=== PATIENT | female | born 1995 | race Caucasian/White ===

== ENCOUNTER → 2017-05-12 | Outpatient (CLI) | payer BC ==
--- NOTE | 2017-05-12 12:15 | US ---
EXAMINATION TYPE: US abdomen complete DATE OF EXAM: 05/12/2017 COMPARISON: NONE CLINICAL HISTORY: 21 year-old female R19.00 ABD AND PELVIC SWELLING/MASS. TECHNIQUE: Multiple sonographic images of the abdomen are obtained. FINDINGS: Liver Length: 13.5 cm Gallbladder Wall: 0.3 cm CBD: 0.4 cm Spleen: 13.7 cm Right Kidney: 14.7 X 4.2 X 3.7 cm Left Kidney: 13.6 X 4.5 X 6.3 cm SR SOLUTIONS CONSULTANT NOTES: Exam limited by bowel gas and body habitus. Pancreas: not visualized due to midline bowel gas Liver: Appears echogenic and attenuating. Gallbladder: small mobile, layering sludge/stones seen. No abnormal distention, wall thickening, or pericholecystic fluid. Evidence for sonographic Baron's sign: No CBD: wnl Spleen: wnl Right Kidney: limited vis of lower pole due to bowel gas. No hydronephrosis. Left Kidney: limited vis of lower pole due to bowel gas. No hydronephrosis. Upper IVC: wnl Abd Aorta: wnl IMPRESSION: 1. Suspect fatty infiltration of the liver. Correlate with LFTs, elevated profile, and patient risk f actors. 2. Some gravel or layering sludge in the gallbladder. No evidence for acute cholecystitis.
--- NOTE | 2017-05-12 12:20 | US ---
EXAMINATION TYPE: US pelvic complete DATE OF EXAM: 05/12/2017 COMPARISON: NONE CLINICAL HISTORY: 21 year-old female R19.00 ABD AND PELVIC SWELLING/MASS. TECHNIQUE: Transabdominal (TA) Date of LMP: 04/21/2017 FINDINGS: Uterus: Anteverted measuring 7.2 x 4.2 x 4.5 cm Endometrial Stripe: 0.8 cm, within normal limits. Right Ovary: 3.2 x 2.6 x 2.2 cm Left Ovary: 3.0 x 3.1 x 2.4 cm Ovaries are normal size. POACHER OPERATOR NOTES: The exam somewhat limited by bowel gas and body habitus. No evident adnexal abnormality or cul-de-sac free fluid. IMPRESSION: No specific abnormality of the pelvis with transabdominal scanning.
== END | disposition home or self-care (01) ==
LOC: RADUSWWP 08:50
PROVIDERS: ATTEND Family Medicine
DX: R19.00 Intra-abdominal and pelvic swelling, mass and lump, unspecified site (principal)
CPT/HCPCS: 76700; 76856

== ENCOUNTER 2017-06-22 05:41 | Day surgery (SDC) | payer BC ==
[2017-06-20 11:19] VITALS: BMI 46.5
[2017-06-22] MEDS ORDERED: SCOPOLAMINE 1.5MG/72HR PATCH TRANSDERM ONE (05:52)
[2017-06-22] MEDS ORDERED: DEXAMETHASONE SOD PHOSPHATE 10 MG/ML 1 ML VIAL IV ONE (05:52)
[2017-06-22] MEDS ORDERED: LIDOCAINE 1% 20 ML VIAL (10MG/ML) FOR IV START INTRADERMA PRN (05:52)
[2017-06-22] MEDS ORDERED: ONDANSETRON 4 MG/2 ML VIAL IVP ONE (05:52)
[2017-06-22] MEDS ORDERED: MIDAZOLAM 2 MG/2 ML VIAL IV PRN (05:52)
[2017-06-22] MEDS ORDERED: MORPHINE SULFATE 2 MG/ML SYRINGE IV PRN (05:52)
[2017-06-22] MEDS ORDERED: HYDROmorphone 0.5 MG/0.5 ML SYRINGE IVP PRN (05:52)
[2017-06-22] MEDS: LACTATED RINGERS 1,000 ML IV SCH ×2 (06:44→06:45)
[2017-06-22] MEDS ORDERED: ceFAZolin IN SWFI 2 GM/20 ML SYRINGE IVP STA (07:27)
--- NOTE | 2017-06-22 07:29 | P.GSHP ---
History of Present Illness H&P Date: 06/22/17 CHIEF COMPLAINT: Cholecystitis HISTORY OF PRESENT ILLNESS: The patient is a 21-year-old female who presents with history of epigastric including right upper quadrant abdominal pain. She underwent diagnostic studies for her gallbladder. Separately her clinical picture was consistent with cholecystitis. Now she presents for surgical intervention. PAST MEDICAL HISTORY: Please see list PAST SURGICAL HISTORY: Please see list MEDICATIONS: Please see list ALLERGIES: Denies. SOCIAL HISTORY: No illicit drug use or recent tobacco use FAMILY HISTORY: Pertinent for gallbladder disease REVIEW OF ORGAN SYSTEMS: CONSTITUTIONAL: No reports of fevers or chills. HEENT: Denies any troubles with the vision or hearing. ENDOCRINE: No reports of hypothyroidism. No diabetes. RESPIRATORY: No recent pneumonias. CARDIOVASCULAR: Denies chest pain or palpitations GI: No blood in stools or constipation. MUSCULOSKELETAL: Has occasional joint pain including back pain. NEURO: No seizure disorders or headaches. No recent stroke. PSYCH: No depression or suicidal ideation. HEMATOLOGIC: No personal or family history of DVTs or pulmonary emboli. PHYSICAL EXAM: VITAL SIGNS: Afebrile vital signs stable GENERAL: Well-developed pleasant in no acute distress. HEENT: No scleral icterus. Extraocular movements grossly intact. Moist buccal mucosa. NECK: Supple without lymphadenopathy. CHEST: Unlabored respirations. Equal bilateral excursions. CARDIOVASCULAR: Regular rate regular rhythm rhythm. Distal 2+ pulses. ABDOMEN: Soft, nondistended. Tender along the epigastrium and right upper quadrant. MUSCULOSKELETAL: No clubbing, cyanosis, or edema. NEURO: Cranial nerves II to XII within normal limits. No focal or lateralizing signs. PSYCH: Alert and oriented to person, place and time. ASSESSMENT: 1. Epigastric and right upper quadrant abdominal pain 2. Chronic cholecystitis PLAN: 1. Will need a robotic cholecystectomy possible open. Benefits and risks were described. 2. Heparin for DVT prophylaxis 5000 units. 3. Antibiotic prophylaxis. Past Medical History Past Medical History: Skin Disorder Additional Past Medical History / Comment(s): GALLBLADDER DISORDER. PSORASIS History of Any Multi-Drug Resistant Organisms: None Reported Past Surgical History: Orthopedic Surgery Additional Past Surgical History / Comment(s): RT KNEE SX. WISDOM TEETH REMOVED UNDER ANESTHESIA Past Anesthesia/Blood Transfusion Reactions: No Reported Reaction Smoking Status: Never smoker - Past Family History Mother Family Medical History: Blood Disorder Additional Family Medical History / Comment(s): MOM HAS FACTOR V. PT TESTED NEG. FOR GENE Medications and Allergies Home Medications Medication Instructions Recorded Confirmed Type No Known Home Medications [No 06/20/17 06/20/17 History Known Home Medications] Allergies Allergy/AdvReac Type Severity Reaction Status Date / Time No Known Allergies Allergy Verified 06/20/17 11:13 Surgical - Exam Vital Signs Temp Pulse Resp BP Pulse Ox 97.4 F L 86 16 136/85 97 06/22/17 06:13 06/22/17 06:13 06/22/17 06:13 06/22/17 06:13 06/22/17 06:13
[2017-06-22] MEDS ORDERED: INDOCYANINE GREEN 25 MG VIAL IV STA (07:30)
[2017-06-22] MEDS ORDERED: INDOCYANINE GREEN 25 MG VIAL IV ONE (07:32)
[2017-06-22] MEDS ORDERED: PROPOFOL 10 MG/ML 20 ML VIAL IV ONE (07:32)
[2017-06-22] MEDS ORDERED: SUCCINYLCHOLINE CHLORIDE VIAL 200 MG/10 ML VIAL IV ONE (07:32)
[2017-06-22] MEDS ORDERED: GLYCOPYRROLATE 0.2 MG/ML 2 ML VIAL ONE (07:32)
[2017-06-22] MEDS ORDERED: MIDAZOLAM 2 MG/2 ML VIAL ONE (07:32)
[2017-06-22] MEDS ORDERED: fentaNYL (PF) 50 MCG/ML 2 ML AMP ONE (07:32)
[2017-06-22] MEDS ORDERED: LIDOCAINE 1% INJ 10MG/ML (20 ML MDV) ONE (07:32)
[2017-06-22] MEDS ORDERED: NEOSTIGMINE 1 MG/ML 10 ML VIAL ONE (07:32)
[2017-06-22] MEDS ORDERED: ROCURONIUM BROMIDE 10 MG/ML 10 ML VIAL IV ONE (07:32)
[2017-06-22] MEDS ORDERED: BUPIVACAINE (PF) 0.25% 30 ML VIAL SQ ONE (07:57)
--- NOTE | 2017-06-22 08:50 | P.OP ---
Date of Procedure: 06/22/17 Description of Procedure: SURGEON: DAVID GOTTLIEB MD RESERVATION AGENT: [place] PREOPERATIVE DIAGNOSES: 1. Chronic cholecystitis. 2. Family history of gallbladder disease. 3. Morbid obesity due to excess calories. 4. Body mass index 46.5 5. Right upper quadrant abdominal pain. 6. Gastroesophageal reflux disease. POSTOPERATIVE DIAGNOSES: 1. Chronic cholecystitis. 2. Family history of gallbladder disease. 3. Morbid obesity due to excess calories. 4. Body mass index 40.2 5. Right upper quadrant abdominal pain. 6. Gastroesophageal reflux disease. 7. Hepatomegaly 8. Fatty liver disease, non-alcoholic OPERATION: Robotic-assisted da Alvin Xi laparoscopic cholecystectomy, multiport with FIREFLY ESTIMATED BLOOD LOSS: 3 mL. SPECIMENS REMOVED: Gallbladder. COMPLICATIONS: None. OPERATIVE FINDINGS: 1. Chronic cholecystitis 2. Moderate hepatomegaly with fatty liver disease INDICATIONS: The patient is a 21-year-old female who presents with chronic cholelcystitis. Surgical intervention with a laparoscopic cholecystectomy was described at length including injury to the biliary tree, bleeding, infection, need for further surgery. Informed consent was obtained. Robotic assisted laparoscopic approach was described. Benefits and risks of the procedure including but not limited to bleeding, infection, injury to the biliary tree was described. Informed consent was obtained. DESCRIPTION OF PROCEDURE: Patient was brought to the operating room, placed in supine position. After general induction, the abdomen had been prepped and draped in standard sterile fashion. The robotic da Alvin XI system was primed. After a timeout protocol was performed, the patient had been prepped and draped in standard sterile fashion. The patient was injected with indocyanine green. The robot was docked along the left lateral abdomen. The patient was repositioned in reverse Trendelenburg position. Please note prior to docking of the robot; however, a 5 mm 0 degrees laparoscopic trocar entry was performed along the left upper quadrant. Next, two 8 mm robotic ports were placed along the right upper abdomen. The camera 8-mm port was maintained along the epigastrium. Another 8 mm port was placed along the left upper abdominal wall after exchanging the 5 mm port. Please note that the ports were placed at least 10 to 15 cm away from the target anatomy of the gallbladder. Using a grasper for arm 3, a grasper for arm 2, including hook cautery for arm 1 , the robotic system was docked and primed as described. Instruments were interchanged by the management assistant including hook cautery, Bovie cautery scissors and clip appliers. I had sat at the console. Adhesions were identified along the infundibulum of the gallbladder and addressed using hook cautery. The gallbladder fundus was retracted over the dome of the liver. Initial attention was brought to the infundibulum which was gently retracted in the inferior lateral approach. Using a grasper, the cystic duct including the cystic artery was carefully skeletonized. FIREFLY was used to identify the cystic artery and cystic structures. Using a clip blood splatter analyst 2 large PLASTIC clips were placed proximally, and 1 clip was placed distally along the cystic duct and then cauterized with the cautery. Again care was taken to avoid any injury to the biliary tree as the common bile duct was clearly visualized during this portion of dissection. Next, the cystic artery was cauterized. Electro-Bovie cautery was used to remove the gallbladder from the hepatic fossa. Hemostasis was checked and found to be adequate. The robot was undocked. I re-scrubbed into the case. Using a 10 mm Endo Catch bag via the left upper quadrant incision, the specimen was removed from the abdominal cavity. All pneumoperitoneum instruments were evacuated from the abdominal cavity. The incisions were reapproximated using 4-0 Monocryl in an interrupted subcuticular fashion. Fascial defect was less than 8 mm in size. Please note along the trocar sites, local anesthetic was placed as a field block prior to insertion of all instruments. Dermabond was applied to the skin. At the end of the procedure needle, sponge, and instrument count had been verified correct by the surgical instrument repair specialist. The patient was transferred to postanesthesia care unit in stable condition. Intraoperative films were shared with the patient's family who were very pleased with the level of care. Console time 18 minutes Plan - Discharge Summary New Discharge Prescriptions: No Action No Known Home Medications [No Known Home Medications] Discharge Medication List No Known Home Medications [No Known Home Medications] 06/20/17 [History]
[2017-06-22 09:25] VITALS: TEMP 98.2
[2017-06-22 09:31] VITALS: RESP 16
[2017-06-22] MEDS: fentaNYL (PF) 50 MCG/ML 2 ML AMP IV PRN ×2 (09:38→10:15)
[2017-06-22] MEDS ORDERED: LACTATED RINGERS 1,000 ML IV ONE (10:16)
[2017-06-22] MEDS ORDERED: HYDROcodone/APAP 5-325MG 1 EACH TAB PO ONE (10:45)
[2017-06-22 11:04] VITALS: BP 117/71
[2017-06-22 11:57] VITALS: PULSE 74
== END 2017-06-22 11:40 | disposition home or self-care (01) ==
LOC: OR 05:41
PROVIDERS: ATTEND Surgery Plastic and Reconstructive Surgery
DX: K80.10 Calculus of gallbladder with chronic cholecystitis without obstruction (principal); L40.9 Psoriasis, unspecified; K21.9 Gastro-esophageal reflux disease without esophagitis; R16.0 Hepatomegaly, not elsewhere classified; K76.0 Fatty (change of) liver, not elsewhere classified; E66.01 Morbid (severe) obesity due to excess calories; Z68.54 Body mass index [BMI] pediatric, 95th percentile for age to less than 120% of the 95th percentile for age; Z83.79 Family history of other diseases of the digestive system
CPT/HCPCS: 47562; S2900; 81025; 86850; 86900; 86901; 88304